=== PATIENT | female | born 1940 | race Caucasian/White ===

== ENCOUNTER 2019-04-26 08:04 | Outpatient (CLI) | payer MEDICARE ==
--- NOTE | 2019-04-26 10:41 | ULT ---
RIGHT BREAST ULTRASOUND: HISTORY: Palpable abnormality and pain at the 10 o'clock position of the right breast. FINDINGS: Correlation is made with the mammogram of 04/05/2019 from [facility]. Sonographic evaluation of region of palpable concern/pain at the 10 o'clock position of the right [place] ast, 10 cm from the nipple, demonstrates no abnormality. IMPRESSION: 1. BIRADS category 2 - benign findings. Return to annual mammographic screening. 2. Further evaluation (including biopsy) should be based on clinical findings/suspicion. POS: OFF
== END 2019-04-26 08:05 | disposition home or self-care (01) ==
LOC: BICULT 08:04
PROVIDERS: ATTEND Internal Medicine
DX: N64.4 Mastodynia (principal)

== ENCOUNTER 2020-08-21 10:58 | Outpatient (CLI) | payer MEDICARE | END 2020-08-21 10:59 | disposition home or self-care (01) | LOC: BICMAMMO 10:58 | PROVIDERS: ATTEND Internal Medicine | DX: Z12.31 Encounter for screening mammogram for malignant neoplasm of breast (principal); Z80.3 Family history of malignant neoplasm of breast; Z91.89 Other specified personal risk factors, not elsewhere classified | CPT/HCPCS: 77063; 77067 ==

== ENCOUNTER 2020-11-17 07:28 | Outpatient (CLI) | payer MEDICARE ==
[2020-11-17] MEDS ORDERED: Iopamidol-370 76% 500 ML 1 ML ONE (08:48)
== END 2020-11-17 07:29 | disposition home or self-care (01) ==
LOC: BICCT 07:28
PROVIDERS: ATTEND Physician Assistant Medical
DX: R10.32 Left lower quadrant pain (principal); K57.32 Diverticulitis of large intestine without perforation or abscess without bleeding; K44.9 Diaphragmatic hernia without obstruction or gangrene
CPT/HCPCS: 74177; 82565; Q9967